=== PATIENT | female | born 1985 | race Two or more races ===

== ENCOUNTER 2016-06-18 08:52 | Day surgery (SDC) | payer MEDICAID ==
[~2016-06-18] VITALS: Ht 160 cm; Wt 90.0 kg
[~2016-06-18 08:52] MED LIST: CHRO1TAB6 PO; FOLI1TAB47 PO; IBUP200T5 PO; KRIL1CAP19 PO; NONE PER PT; ONDA4TAB7 PO; OXYC1TAB7 PO; [UNRECOGNIZED DRUG - OTHER] PO
[2016-06-18] MEDS ORDERED: LACTATED RINGERS 1,000 ML IV SCH ×2 (09:11→09:14)
[2016-06-18 09:15] VITALS: BP 151/96
[2016-06-18 09:30] LABS: DAU SCREEN DISCLAIMER
[2016-06-18] MEDS ORDERED: LIDOCAINE 1%, 2ML SQ PRN (09:30)
[2016-06-18 09:36] LABS: HCG UR OBC PASS
[2016-06-18] MEDS ORDERED: MIDAZOLAM 1 MG/ML, 2ML ONE ×2 (10:56→12:08)
[2016-06-18] MEDS ORDERED: FENTANYL PF 250 MCG/5ML ONE (10:56)
[2016-06-18] MEDS ORDERED: ONDANSETRON 2MG/ML, 2ML ONE (11:03)
[2016-06-18] MEDS ORDERED: PROPOFOL 10 MG/ML, 20ML ONE (11:03)
[2016-06-18] MEDS ORDERED: SUCCINYLCHOLINE 20 MG/ML, 10ML ONE (11:03)
[2016-06-18] MEDS ORDERED: CEFAZOLIN 1,000 MG ONE (11:03)
[2016-06-18] MEDS ORDERED: ROCURONIUM 10 MG/ML ONE (11:03)
[2016-06-18] MEDS ORDERED: DEXAMETHASONE 4 MG/ML, 5ML ONE (11:03)
[2016-06-18] MEDS ORDERED: ONDANSETRON 2MG/ML, 2ML IVPush PRN (11:30)
[2016-06-18] MEDS ORDERED: METOCLOPRAMIDE 5 MG/ML, 2ML IV PRN (11:30)
[2016-06-18] MEDS ORDERED: hydrALAzine 20 MG/ML, 1ML IV PRN (11:30)
[2016-06-18] MEDS ORDERED: ACETAMINOPHEN 325 MG TABLET PO PRN (11:30)
[2016-06-18] MEDS ORDERED: MEPERIDINE/PF 25MG/0.5ML IVPush PRN (11:30)
[2016-06-18] MEDS ORDERED: PROMETHAZINE 25 MG/ML, 1ML IV PRN (11:30)
[2016-06-18] MEDS ORDERED: OXYcodone 5 MG/5 ML ORAL.SOL UDC PO PRN (11:30)
[2016-06-18] MEDS ORDERED: MIDAZOLAM 1 MG/ML, 2ML IV PRN (11:30)
[2016-06-18] MEDS ORDERED: LABETALOL 5MG/ML, 20ML IV PRN (11:30)
[2016-06-18] MEDS ORDERED: ACETAMINOPHEN 325 MG TABLET ONE (11:49)
[2016-06-18] MEDS ORDERED: OXYcodone 5 MG/5 ML ORAL.SOL UDC ONE (11:49)
[2016-06-18] MEDS ORDERED: ACETAMINOPHEN 650 MG/20.3 ML UDC ONE (11:49)
[2016-06-18] MEDS ORDERED: FENTANYL PF 100 MCG/2ML ONE (11:49)
[2016-06-18] MEDS: FENTANYL PF 100 MCG/2ML IV PRN ×2 (11:53→12:02)
[2016-06-18] MEDS ORDERED: HYDROmorphone 2 MG/ML, 1ML ONE (12:08)
[2016-06-18] MEDS: HYDROmorphone 1 MG/ML, 1ML IV PRN ×2 (12:12→12:18)
[2016-06-18] MEDS ORDERED: KETOROLAC 30 MG/1 ML IVPush ONE (14:30)
[2016-06-18] MEDS ORDERED: TAMSULOSIN 0.4 MG CAP.ER.24H PO ONE (14:30)
[2016-06-18] MEDS ORDERED: KETOROLAC 30 MG/1 ML ONE (14:51)
[2016-06-18] MEDS ORDERED: TAMSULOSIN 0.4 MG CAP.ER.24H ONE (14:51)
== END 2016-06-18 16:00 | disposition home or self-care (01) ==
LOC: OUT 08:52
PROVIDERS: ATTEND Urology
DX: N20.1 Calculus of ureter (principal); E66.9 Obesity, unspecified; Z68.35 Body mass index [BMI] 35.0-35.9, adult; F17.210 Nicotine dependence, cigarettes, uncomplicated; Z72.89 Other problems related to lifestyle
CPT/HCPCS: 52351; 74000; 76000; 80307; 81003; 81025; 87086; C1758; C1769; J0330; J0690; J1100; J1170; J1885; J2250; J2405; J2704; J3010; J7120

== ENCOUNTER 2016-06-20 23:03 | Emergency (ER) | payer MEDICAID ==
[~2016-06-20] VITALS: Ht 162.6 cm; Wt 94.5 kg
[2016-06-20 23:04] VITALS: BP 151/90
[2016-06-20] MEDS ORDERED: KETOROLAC 30 MG/1 ML ONE (23:27)
[2016-06-20] MEDS ORDERED: MORPHINE SULFATE 4 MG/ML, 1ML ONE (23:27)
[2016-06-20] MEDS ORDERED: MORPHINE SULFATE 4 MG/ML, 1ML IVPush PRN (23:30)
[2016-06-20] MEDS ORDERED: SODIUM CHLORIDE FLUSH 10ML SYR IVF ONE (23:30)
[2016-06-20] MEDS ORDERED: SODIUM CHLORIDE 0.9% 1,000ML IV ONE (23:30)
[2016-06-20] MEDS ORDERED: KETOROLAC 30 MG/1 ML IVPush ONE (23:30)
[2016-06-20 23:44] LABS: HEMOGLOBIN 12.4 g/dL (11.7-16.4)
[2016-06-20 23:50] LABS: ASPARTATE AMINO TRANSFERASE 23 U/L (15-37); BLOOD UREA NITROGEN 14 mg/dL (7-18)
[2016-06-20 23:58] LABS: PATH.CAST-FLAG NOT PRESENT; SPERM-FLAG NOT PRESENT; SRC-FLAG NOT PRESENT; XTAL-FLAG NOT PRESENT; YLC-FLAG NOT PRESENT
[2016-06-21 00:07] LABS: DIFF TOTAL CELLS COUNTED 100 CELL DIFF
[2016-06-21 00:10] LABS: VERIFY COUNTS? YES
== END 2016-06-21 01:40 | disposition home or self-care (01) ==
LOC: ED 23:30
DX: R10.9 Unspecified abdominal pain (principal); F12.90 Cannabis use, unspecified, uncomplicated; Z90.49 Acquired absence of other specified parts of digestive tract; Z87.442 Personal history of urinary calculi
CPT/HCPCS: 36415; 74000; 80053; 81001; 85025; 96374; 96375; 99285; J1885; J7030

== ENCOUNTER 2020-04-26 17:38 | Emergency (ER) | payer MEDICAID ==
[~2020-04-26] VITALS: Ht 162.6 cm; Wt 99.7 kg
[~2020-04-26 17:38] MED LIST changes: +IBUP-1902 PO; -IBUP200T5 PO
[2020-04-26] MEDS ORDERED: KETOROLAC 30 MG/1 ML ONE (18:35)
[2020-04-26] MEDS ORDERED: CYCLOBENZAPRINE 10 MG TABLET ONE (18:35)
--- NOTE | 2020-04-26 18:45 | NUR ---
MEDICATED PER MAR. PT TO US.
[2020-04-26] MEDS ORDERED: CYCLOBENZAPRINE 10 MG TABLET PO ONE (19:00)
[2020-04-26] MEDS ORDERED: KETOROLAC 30 MG/1 ML IM ONE (19:00)
--- NOTE | 2020-04-26 19:12 | NUR ---
PT BACK FROM US. VSS. NO NEEDS AT THIS TIME.
--- NOTE | 2020-04-26 19:48 | NUR ---
PT AMBULATED TO BR INDEPENDENTLY. UA OBTAINED AND SENT TO LAB.
--- NOTE | 2020-04-26 20:02 | NUR ---
LAB CALLED FOR [employer]. [employer] STATES SHE JUST RECEIVED AND WILL RUN IT THROUGH.
[2020-04-26 20:05] LABS: HCG UR SG 1.028 (1.003-1.030); MICROSCOPIC NOT IND
--- NOTE | 2020-04-26 20:14 | NUR ---
PT TO CT.
--- NOTE | 2020-04-26 20:23 | NUR ---
PT BACK FROM CT. MONITOR IN PLACE.
--- NOTE | 2020-04-26 20:55 | NUR ---
REPORT FROM [employer] WORKER OF CARE AT THIS TIME.
[2020-04-26 21:15] VITALS: BP 130/84
--- NOTE | 2020-04-26 21:16 | NUR ---
Patient/Caregiver given discharge instructions and they have confirmed that they understand the instructions. Patient ambulatory with steady gait.
== END 2020-04-26 21:32 | disposition home or self-care (01) ==
LOC: ED 21:07
DX: G89.29 Other chronic pain (principal); M54.5 Low back pain; R05 Cough; R94.31 Abnormal electrocardiogram [ECG] [EKG]; R06.02 Shortness of breath; F17.200 Nicotine dependence, unspecified, uncomplicated; Z98.51 Tubal ligation status; Z90.49 Acquired absence of other specified parts of digestive tract
CPT/HCPCS: 71045; 74176; 76830; 81003; 81025; 93005; 96372; 99285; J1885

== ENCOUNTER 2020-05-28 11:02 | Emergency (ER) | payer MEDICAID ==
[~2020-05-28] VITALS: Ht 162.6 cm; Wt 100.7 kg
--- NOTE | 2020-05-28 11:22 | NUR ---
LATE ENTRY DUE TO PT CARE. PT REPORTS STEPPING ON [place] AROUND 9AM AND TWISTED LEFT ANKLE. SWELLING AND BRUISING NOTED AROUND LEFT ANKLE. PT STATES NO HEAD INJURY OR INJURY TO REST OF BODY.
[2020-05-28] MEDS ORDERED: IBUPROFEN 600 MG TABLET ONE (11:29)
[2020-05-28] MEDS ORDERED: IBUPROFEN 600 MG TABLET PO ONE (11:30)
[2020-05-28 11:57] VITALS: BP 146/77
--- NOTE | 2020-05-28 11:58 | NUR ---
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
== END 2020-05-28 12:14 | disposition home or self-care (01) ==
LOC: ED 11:49
DX: S93.492A Sprain of other ligament of left ankle, initial encounter (principal); M79.89 Other specified soft tissue disorders; F17.210 Nicotine dependence, cigarettes, uncomplicated; X50.1XXA Overexertion from prolonged static or awkward postures, initial encounter; Y93.89 Activity, other specified; Y92.69 Other specified industrial and construction area as the place of occurrence of the external cause; Y99.0 Civilian activity done for income or pay
CPT/HCPCS: 99283

== ENCOUNTER 2020-12-05 08:57 | Emergency (ER) | payer MEDICAID, OTHER ==
[~2020-12-05] VITALS: Ht 162.6 cm; Wt 95.7 kg
[2020-12-05 09:28] VITALS: BP 147/87
--- NOTE | 2020-12-05 10:22 | NUR ---
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
--- NOTE | 2020-12-05 10:27 | NUR ---
PATIENT WALKED BACK FROM LOBBY WITH CHIEF C/O HEAD INJURY. PER PATIENT SHE HIT THE TOP OF HER HEAD ON MEDICINE CABINET, DENIES LOC. MATTHIAS, FAMILY AT BEDSIDE, CALL LIGHT WITHIN REACH.
--- NOTE | 2020-12-05 11:07 | NUR ---
ERMD AT BEDSIDE FOR EVALUATION.
[2020-12-05] MEDS ORDERED: DIPH,PERTUSS(ACELL),TET VAC/PF 0.5 ML IM-VACC ONE ×2 (11:30→11:57)
--- NOTE | 2020-12-05 12:22 | NUR ---
IRRIGATION OF HEAD LACERATION, PATIENT TOLERATED WELL. TDAP GIVEN.
[2020-12-05] MEDS ORDERED: BACITRACIN ZINC OINT 500U/GM, 0.9 GM ONE (12:51)
--- NOTE | 2020-12-05 13:21 | NUR ---
Patient given discharge instructions and they have confirmed that they understand the instructions. Patient ambulatory with steady gait. NAD, all questions answered appropriately, denies additional needs at this time. No personal belongings left in room after discharge.
== END 2020-12-05 13:22 | disposition home or self-care (01) ==
LOC: ED 13:00
DX: S01.01XA Laceration without foreign body of scalp, initial encounter (principal); W22.8XXA Striking against or struck by other objects, initial encounter; Y93.89 Activity, other specified; Y92.009 Unspecified place in unspecified non-institutional (private) residence as the place of occurrence of the external cause; Y99.8 Other external cause status
CPT/HCPCS: 90471; 90715; 99283